=== PATIENT | female | born 1985 | race Caucasian/White ===

== ENCOUNTER 2020-02-26 18:55 | Emergency (ER) | payer OTHER ==
[~2020-02-26] VITALS: Ht 165.1 cm; Wt 59.1 kg
--- NOTE | 2020-02-26 19:05 | NUR ---
Report from Chuy FIELDS
[2020-02-26] MEDS ORDERED: HYDROcodone/APAP 5/325 TABLET ONE (19:15)
[2020-02-26] MEDS ORDERED: HYDROcodone/APAP 5/325 TABLET PO ONE (19:30)
[2020-02-26 20:31] VITALS: BP 110/69
--- NOTE | 2020-02-26 20:32 | NUR ---
Pt DCed at this time, ankle wrapped with patty bandage, and dc instructions provided on f/u appt and care at home. pt verbalized understanding and provided with wheelchair upon departure. Pt and police currently awaiting ride, no further requests at this time, ready for DC
== END 2020-02-26 20:34 | disposition home or self-care (01) ==
LOC: ED 20:15
DX: S93.401A Sprain of unspecified ligament of right ankle, initial encounter (principal); W18.30XA Fall on same level, unspecified, initial encounter; Y93.89 Activity, other specified; Y92.89 Other specified places as the place of occurrence of the external cause; Y99.8 Other external cause status
CPT/HCPCS: 99284